=== PATIENT | male | born 1975 | race Caucasian/White ===

== ENCOUNTER 2020-12-28 14:22 | Inpatient (IN) | payer BC ==
[~2020-12-28] VITALS: Ht 180.3 cm; Wt 97.7 kg
[2020-12-28 17:08] LABS: BASOPHILS % (AUTO) 0.4 % (0-1); EOSINOPHILS % (AUTO) 0 % (0-6); HEMATOCRIT 37.7 % (42.0-52.0); LYMPHOCYTES % (AUTO) 15.2 % (21-51); MEAN CORPUSCULAR HEMOGLOBIN 27.7 PG (27.0-31.0); MEAN CORPUSCULAR HGB CONC 34.4 g/dL (33.0-36.5); MEAN CORPUSCULAR VOLUME 80.6 FL (78-98); MEAN PLATELET VOLUME 7.4 FL (7.4-10.4); MONOCYTES # (AUTO) 0.3 X10'3 (0-0.9); MONOCYTES % (AUTO) 4.8 % (2-12); NEUTROPHILS % (AUTO) 79.6 % (42-75); PLATELET COUNT 216 X10'3 (140-440); RED BLOOD COUNT 4.68 X10'6 (4.70-6.10); RED CELL DISTRIBUTION WIDTH 13.9 % (11.5-14.5); WHITE BLOOD COUNT 6.3 X10'3 (4.5-11.0)
[2020-12-28 17:18] LABS: D-DIMER 0.55 MG/L FEU (0-0.50)
[2020-12-28 17:23] LABS: ALANINE AMINOTRANSFERASE 42 U/L (12-78); ALBUMIN 3.2 G/DL (3.4-5.0); ALBUMIN/GLOBULIN RATIO 0.7 (1.1-1.5); ALKALINE PHOSPHATASE 46 IU/L (46-116); ANION GAP 11 (8-16); ASPARTATE AMINO TRANSFERASE 55 U/L (10-37); BILIRUBIN,TOTAL 0.4 MG/DL (0.1-1.0); BLOOD UREA NITROGEN 23 MG/DL (7-18); BUN/CREATININE RATIO 9.7 (5.4-32.0); C-REACTIVE PROTEIN 11.44 MG/DL (0.0-0.5); CALCIUM 8.3 MG/DL (8.5-10.1); CHLORIDE 98 MMOL/L (99-107); CREATININE 2.37 MG/DL (0.60-1.10); GLUCOSE 132 MG/DL (70-104); LACTATE DEHYDROGENASE 499 U/L (85-227); SODIUM 135 MMOL/L (135-145); TOTAL CARBON DIOXIDE 26.1 MMOL/L (24-32); TOTAL PROTEIN 7.7 G/DL (6.4-8.2); eGFR 30 ML/MIN
[2020-12-28 17:25] LABS: POTASSIUM 2.9 MMOL/L (3.5-5.1)
[2020-12-28 17:59] LABS: CLARITY,URINE CLOUDY (Clear); COLOR,URINE YELLOW (Yellow); GLUCOSE, URINE NEGATIVE (Neg); KETONES,URINE NEGATIVE (Neg); LEUKOCYTE ESTERASE ,URINE NEGATIVE (Neg); NITRITES, URINE NEGATIVE (Neg); OCCULT BLOOD,URINE LARGE (Neg); PROTEIN,URINE 300 mg/dl (Neg); UA COLLECTION TYPE CLN CATCH MIDSTREAM; UROBILINOGEN,URINE 0.2 E.U/dL (0.2-1.0)
[2020-12-28 18:06] LABS: BACTERIA,URINE 2+ /HPF (Neg); COARSE GRANULAR CAST >30 /LPF (NEGATIVE); SQUAMOUS EPITHELIAL CELL,UR MODERATE /LPF (FEW)
[2020-12-28 18:07] LABS: MUCUS STRANDS FEW /LPF (Neg); TRANSITIONAL EPI CELLS,URINE FEW /HPF; WBC,URINE 0-4 /HPF (0-4)
[2020-12-28] MEDS ORDERED: potassium Cl 20 mEq SR tablet PO ONE (18:10)
[2020-12-28] MEDS ORDERED: potassium Cl 10 mEq/100mL bag IV ONE (18:10)
[2020-12-28] MEDS ORDERED: dexamethasone 4mg tablet PO ONE (18:15)
[2020-12-28] MEDS ORDERED: acetaminophen 325mg tablet PO ONE (18:40)
[2020-12-28] MEDS ORDERED: REMDESIVIR INJ 200 MG in normal saline 100ml IV soln 60 ML IV ONE (20:00)
[2020-12-28] MEDS ORDERED: temazepam 15mg capsule PO PRN (21:00)
[2020-12-28] MEDS ORDERED: glucagon, human recombinant 1mg kit SUBCUT PRN (21:10)
[2020-12-28] MEDS ORDERED: magnesium hydroxide 30ml (MOM) UD suspension PO PRN (21:10)
[2020-12-28] MEDS ORDERED: morphine 2 MG/ML inj. syringe IV PRN (21:10)
[2020-12-28] MEDS ORDERED: potassium Cl 20 mEq SR tablet PO PRN (21:10)
[2020-12-28] MEDS ORDERED: magnesium Cl slow-release 64mg tablet PO PRN (21:10)
[2020-12-28] MEDS ORDERED: potassium Cl 40MEQ/1/2NS 520ml 520 ML IV PRN ×2 (21:10)
[2020-12-28] MEDS ORDERED: magnesium 2GM in 50ml NS 50 ML IV PRN (21:10)
[2020-12-28] MEDS ORDERED: acetaminophen 325mg tablet PO PRN ×2 (21:10)
[2020-12-28] MEDS ORDERED: ondansetron/PF 4mg/2ml inj IV PRN (21:10)
[2020-12-28] MEDS ORDERED: MESSAGE TO PHARMACY PO ONE (21:10)
[2020-12-28] MEDS ORDERED: mag hydrox/Alum hydrox/simeth 30ml oral suspension PO PRN (21:10)
[2020-12-28] MEDS ORDERED: HYDROcodone/acetaminophen 5mg/325mg tablet PO PRN (21:10)
[2020-12-28] MEDS ORDERED: dextrose ORAL solution 15 GM/59 ML bottle PO PRN ×2 (21:10)
[2020-12-28] MEDS ORDERED: magnesium 4gm in 100ml NS 100 ML IV PRN (21:10)
[2020-12-28] MEDS ORDERED: dextrose 50%-water 50ml dispensing syringe IV PRN ×2 (21:10)
[2020-12-28 21:33] LABS: HEMOGLOBIN A1C 6.7 % (4.5-6.2)
[2020-12-28] MEDS ORDERED: AMLO2.5T2 PO (21:55)
[2020-12-28] MEDS ORDERED: ALBU8.5H17 INH (21:55)
[2020-12-28] MEDS ORDERED: DULA0.75 SQ (21:55)
[2020-12-28] MEDS ORDERED: SILD100T PO (21:55)
[2020-12-28] MEDS ORDERED: LISI40TA13 PO (21:55)
[2020-12-28] MEDS ORDERED: HYDR25TA4 PO (21:55)
[2020-12-28] MEDS ORDERED: SIMV5TAB58 PO (21:55)
[2020-12-28] MEDS ORDERED: METF-438 PO (21:55)
[2020-12-28] MEDS ORDERED: NAPR-56 PO (21:55)
[2020-12-28] MEDS ORDERED: CYCL-394 PO (21:55)
[2020-12-28] MEDS ORDERED: TRAZ-251 PO (21:55)
[2020-12-28] MEDS: normal saline 1000ml 1,000 ML IV SCH (22:05)
[2020-12-28 22:32] LABS: MAGNESIUM 2.1 MG/DL (1.5-2.4); POTASSIUM 3.2 MMOL/L (3.5-5.1)
[2020-12-29] MEDS: dexamethasone 4mg/ml inj IV SCH ×2 (01:27→08:09)
--- NOTE | 2020-12-29 03:07 | NUR ---
NOTICED PT BREATHES THROUGH HIS MOUTH WHEN HE SLEEPS. PLACED NC NEAR MOUTH AND WILL CONTINUE TO MONITOR.
[2020-12-29] MEDS ORDERED: heparin, porcine 5000 units/ml vial SQ SCH (08:00)
[2020-12-29] MEDS: CefTRIAXone 2gm/D5W 50ml BAG 50 ML IV SCH (08:09)
[2020-12-29] MEDS: K and/or MAG REPLACEMENT MC SCH ×2 (08:38→20:00)
[2020-12-29] MEDS: potassium Cl 20 mEq SR tablet PO PRN ×3 (08:39→16:37)
[2020-12-29 09:11] LABS: BASOPHILS % (AUTO) 0.2 % (0-1); EOSINOPHILS % (AUTO) 0 % (0-6); HEMATOCRIT 37.7 % (42.0-52.0); LYMPHOCYTES # (AUTO) 0.9 X10'3 (1.1-4.8); LYMPHOCYTES % (AUTO) 11.8 % (21-51); MEAN CORPUSCULAR HEMOGLOBIN 27.8 PG (27.0-31.0); MEAN CORPUSCULAR HGB CONC 34.6 g/dL (33.0-36.5); MEAN CORPUSCULAR VOLUME 80.4 FL (78-98); MEAN PLATELET VOLUME 7.7 FL (7.4-10.4); MONOCYTES # (AUTO) 0.3 X10'3 (0-0.9); NEUTROPHILS # (AUTO) 6.5 X10'3 (1.8-7.7); PLATELET COUNT 230 X10'3 (140-440); RED BLOOD COUNT 4.69 X10'6 (4.70-6.10); WHITE BLOOD COUNT 7.8 X10'3 (4.5-11.0)
[2020-12-29 09:25] LABS: ALANINE AMINOTRANSFERASE 44 U/L (12-78); ALBUMIN 2.8 G/DL (3.4-5.0); ALBUMIN/GLOBULIN RATIO 0.6 (1.1-1.5); ALKALINE PHOSPHATASE 41 IU/L (46-116); ASPARTATE AMINO TRANSFERASE 51 U/L (10-37); BILIRUBIN,TOTAL 0.3 MG/DL (0.1-1.0); BLOOD UREA NITROGEN 37 MG/DL (7-18); CALCIUM 8.1 MG/DL (8.5-10.1); CHLORIDE 100 MMOL/L (99-107); CREATININE 2.46 MG/DL (0.60-1.10); GLUCOSE 213 MG/DL (70-104); MAGNESIUM 2.4 MG/DL (1.5-2.4); POTASSIUM 3.4 MMOL/L (3.5-5.1); TOTAL CARBON DIOXIDE 23.8 MMOL/L (24-32); TOTAL PROTEIN 7.3 G/DL (6.4-8.2); eGFR 29 ML/MIN
[2020-12-29 09:27] LABS: ANION GAP 14 (8-16); SODIUM 138 MMOL/L (135-145)
[2020-12-29] MEDS: normal saline 1000ml 1,000 ML IV SCH (10:47)
[2020-12-29] MEDS: dexamethasone 6 MG/D5W 100ml IV.soln (total 101.5ml) IV SCH ×2 (16:37)
--- NOTE | 2020-12-29 19:40 | NUR ---
PT SITTING UP EATING DINNER. HE HAS NO COMPLAINTS AT PRESENT.
[2020-12-29] MEDS: REMDESIVIR INJ 100 MG in normal saline 100ml IV soln 80 ML IV SCH (21:19)
[2020-12-29] MEDS: insulin glargine (Lantus) pen - multi-dose SQ SCH (22:27)
[2020-12-29] MEDS: enoxaparin 60mg/0.6ml syringe SUBCUT SCH (22:29)
--- NOTE | 2020-12-29 22:33 | NUR ---
PUMP MALFUNCTIONED. REMDESIVIR DID NOT ADMINISTER. PLACED A NEW PUMP. MEDICATION STARTING NOW.
--- NOTE | 2020-12-29 23:00 | NUR ---
MEDICATED PT FOR A HEADACHE
[2020-12-30] MEDS: dexamethasone 6 MG/D5W 100ml IV.soln (total 101.5ml) IV SCH ×6 (00:17→22:01)
[2020-12-30] MEDS: normal saline 1000ml 1,000 ML IV SCH ×2 (00:19→14:15)
[2020-12-30 07:52] LABS: BASOPHILS % (AUTO) 0.2 % (0-1); EOSINOPHILS % (AUTO) 0 % (0-6); HEMATOCRIT 39.5 % (42.0-52.0); HEMOGLOBIN 13.5 g/dl (14.0-17.9); LYMPHOCYTES # (AUTO) 1.1 X10'3 (1.1-4.8); MEAN CORPUSCULAR HEMOGLOBIN 27.6 PG (27.0-31.0); MEAN CORPUSCULAR HGB CONC 34.2 g/dL (33.0-36.5); MEAN CORPUSCULAR VOLUME 80.8 FL (78-98); MEAN PLATELET VOLUME 7.8 FL (7.4-10.4); MONOCYTES # (AUTO) 0.7 X10'3 (0-0.9); MONOCYTES % (AUTO) 5.3 % (2-12); NEUTROPHILS # (AUTO) 10.9 X10'3 (1.8-7.7); NEUTROPHILS % (AUTO) 85.5 % (42-75); PLATELET COUNT 264 X10'3 (140-440); RED BLOOD COUNT 4.88 X10'6 (4.70-6.10); RED CELL DISTRIBUTION WIDTH 14.3 % (11.5-14.5); WHITE BLOOD COUNT 12.8 X10'3 (4.5-11.0)
[2020-12-30] MEDS: K and/or MAG REPLACEMENT MC SCH ×2 (08:00→19:46)
[2020-12-30] MEDS ORDERED: ALBUTEROL INHALER 1 PUFF/90 MCG INHALER IH PRN (08:00)
[2020-12-30] MEDS ORDERED: non-formulary drug (Sildenafil Citrate* (Viagra*) 1 TAB) PO PRN (08:00)
[2020-12-30 08:04] LABS: ALANINE AMINOTRANSFERASE 42 U/L (12-78); ALBUMIN 2.7 G/DL (3.4-5.0); ALBUMIN/GLOBULIN RATIO 0.6 (1.1-1.5); ALKALINE PHOSPHATASE 46 IU/L (46-116); ANION GAP 11 (8-16); ASPARTATE AMINO TRANSFERASE 47 U/L (10-37); BILIRUBIN,TOTAL 0.3 MG/DL (0.1-1.0); BLOOD UREA NITROGEN 37 MG/DL (7-18); BUN/CREATININE RATIO 23.1 (5.4-32.0); CALCIUM 8.1 MG/DL (8.5-10.1); CHLORIDE 106 MMOL/L (99-107); GLUCOSE 207 MG/DL (70-104); MAGNESIUM 2.2 MG/DL (1.5-2.4); POTASSIUM 3.9 MMOL/L (3.5-5.1); SODIUM 143 MMOL/L (135-145); TOTAL CARBON DIOXIDE 26.5 MMOL/L (24-32); eGFR 47 ML/MIN
--- NOTE | 2020-12-30 10:23 | NUR ---
assumed care of pt from Dylan NARAYANAN
[2020-12-30] MEDS: insulin Lispro (HumaLOG) vial - multi-dose SQ SCH ×3 (11:12→20:11)
--- NOTE | 2020-12-30 13:00 | NUR ---
PT IS RESTING QUIETLY IN ROOM 12 PLAYING ON PHONE, PT IS [employer] 15 ALERT AND ORIENTED, RESP EVEN AND UNLABORED, SKIN P/W/D, HAS BEEN USING URINAL, TOLERATING DIET WELL, NO N/V, ON NASAL CANNULA 6 LITERS, TALKING FULL SENTENCES, SAID HE IS FEELING BETTER, NO BEDS AVAILABLE UPSTAIRS, PT TO REMAIN IN ER AT THIS TIME
[2020-12-30] MEDS: cyclobenzaprine 10mg tablet PO SCH ×2 (13:04→16:00)
[2020-12-30] MEDS: naproxen 500mg tablet PO SCH ×2 (13:04→20:00)
[2020-12-30] MEDS: amLODIPine 2.5mg tablet PO SCH (13:04)
[2020-12-30] MEDS: enoxaparin 60mg/0.6ml syringe SUBCUT SCH ×2 (13:05→22:02)
[2020-12-30] MEDS: CefTRIAXone 2gm/D5W 50ml BAG 50 ML IV SCH (13:05)
--- NOTE | 2020-12-30 14:00 | NUR ---
BROUGHT HOSPITAL BED FOR PT, LUNCH IS AT BEDSIDE, PLACED 02 ON HUMDIFIED NASAL CANNULA
[2020-12-30] MEDS: REMDESIVIR INJ 100 MG in normal saline 100ml IV soln 80 ML IV SCH (20:00)
[2020-12-30] MEDS: traZODone 50mg tablet PO SCH (22:02)
[2020-12-30] MEDS: SIMVASTATIN PO SCH (22:17)
[2020-12-30] MEDS: insulin glargine (Lantus) pen - multi-dose SQ SCH (22:36)
[2020-12-31] MEDS: normal saline 1000ml 1,000 ML IV SCH (03:03)
[2020-12-31 07:13] LABS: BASOPHILS % (AUTO) 0.3 % (0-1); EOSINOPHILS % (AUTO) 0 % (0-6); HEMATOCRIT 37.4 % (42.0-52.0); LYMPHOCYTES # (AUTO) 1.2 X10'3 (1.1-4.8); LYMPHOCYTES % (AUTO) 13.3 % (21-51); MEAN CORPUSCULAR HGB CONC 34.8 g/dL (33.0-36.5); MEAN CORPUSCULAR VOLUME 80.4 FL (78-98); MONOCYTES # (AUTO) 0.6 X10'3 (0-0.9); MONOCYTES % (AUTO) 6.7 % (2-12); NEUTROPHILS # (AUTO) 7.3 X10'3 (1.8-7.7); NEUTROPHILS % (AUTO) 79.7 % (42-75); PLATELET COUNT 289 X10'3 (140-440); RED BLOOD COUNT 4.66 X10'6 (4.70-6.10); RED CELL DISTRIBUTION WIDTH 14.5 % (11.5-14.5); WHITE BLOOD COUNT 9.2 X10'3 (4.5-11.0)
[2020-12-31 07:38] LABS: ALANINE AMINOTRANSFERASE 42 U/L (12-78); ALBUMIN 2.5 G/DL (3.4-5.0); ALBUMIN/GLOBULIN RATIO 0.6 (1.1-1.5); ALKALINE PHOSPHATASE 40 IU/L (46-116); ANION GAP 9 (8-16); ASPARTATE AMINO TRANSFERASE 36 U/L (10-37); BILIRUBIN,TOTAL 0.4 MG/DL (0.1-1.0); BLOOD UREA NITROGEN 33 MG/DL (7-18); BUN/CREATININE RATIO 23.1 (5.4-32.0); CHLORIDE 109 MMOL/L (99-107); CREATININE 1.43 MG/DL (0.60-1.10); GLUCOSE 194 MG/DL (70-104); POTASSIUM 3.7 MMOL/L (3.5-5.1); SODIUM 146 MMOL/L (135-145); TOTAL CARBON DIOXIDE 27.8 MMOL/L (24-32); TOTAL PROTEIN 6.5 G/DL (6.4-8.2); eGFR 53 ML/MIN
[2020-12-31] MEDS: K and/or MAG REPLACEMENT MC SCH ×2 (08:00→20:00)
--- NOTE | 2020-12-31 10:19 | NUR ---
Patient in room ED 12. I have received report from Lexus RN and had the opportunity to ask questions and assume patient care.
[2020-12-31] MEDS: enoxaparin 60mg/0.6ml syringe SUBCUT SCH ×2 (10:20→20:09)
[2020-12-31] MEDS: naproxen 500mg tablet PO SCH ×2 (11:17→20:07)
[2020-12-31] MEDS: cyclobenzaprine 10mg tablet PO SCH ×3 (11:17→16:29)
[2020-12-31] MEDS: amLODIPine 2.5mg tablet PO SCH (11:17)
[2020-12-31] MEDS: dexamethasone 6 MG/D5W 100ml IV.soln (total 101.5ml) IV SCH ×6 (11:21→16:29)
[2020-12-31 12:00] VITALS: BP 149/81
[2020-12-31] MEDS: CefTRIAXone 2gm/D5W 50ml BAG 50 ML IV SCH (12:28)
[2020-12-31] MEDS: insulin Lispro (HumaLOG) vial - multi-dose SQ SCH ×2 (13:57→20:06)
[2020-12-31 14:00] VITALS: BP 135/72
[2020-12-31 14:21] LABS: D-DIMER 0.37 MG/L FEU (0-0.50)
[2020-12-31 18:00] VITALS: BP 145/80
--- NOTE | 2020-12-31 18:22 | NUR ---
patient report given to Danielle NARAYANAN
--- NOTE | 2020-12-31 18:54 | NUR ---
Patient in room [facility]TH[facility] 4024. I have received report from LADY Shipley and had the opportunity to ask questions and assume patient care.
[2020-12-31] MEDS: lactobacillus rhamnosus 10,000 MMU CELLS/CAPSULE PO SCH (20:07)
[2020-12-31] MEDS: traZODone 50mg tablet PO SCH (20:59)
[2020-12-31] MEDS: REMDESIVIR INJ 100 MG in normal saline 100ml IV soln 80 ML IV SCH (21:00)
[2020-12-31] MEDS: SIMVASTATIN PO SCH (21:00)
[2020-12-31 22:00] VITALS: BP 129/72
--- NOTE | 2020-12-31 22:20 | NUR ---
Gave patient 12 units of Lantus since he had received it the night before and there was no morning blood sugar to adjust up or down from.
[2020-12-31] MEDS: insulin glargine (Lantus) pen - multi-dose SQ SCH (22:21)
[2021-01-01] MEDS: dexamethasone 6 MG/D5W 100ml IV.soln (total 101.5ml) IV SCH ×4 (00:32→07:50)
[2021-01-01] MEDS: cyclobenzaprine 10mg tablet PO SCH ×4 (00:33→23:25)
[2021-01-01 02:00] VITALS: BP 125/64
--- NOTE | 2021-01-01 02:26 | NUR ---
Spoke with Charge LADY Durant on patient's HR of 47. She said to continue to monitor at this time. As long as patient is not symptomatic. We discussed possibility of HR being low because the patient is sleeping. Patient had a low HR of 45 earlier this evening and stated that he felt fine no symptoms.
[2021-01-01 06:10] VITALS: BP 134/68
--- NOTE | 2021-01-01 06:19 | NUR ---
Problems reprioritized. Patient report given, questions answered & plan of care reviewed with LADY Shipley.
[2021-01-01 06:46] LABS: BASOPHILS % (AUTO) 0.5 % (0-1); EOSINOPHILS % (AUTO) 0 % (0-6); HEMOGLOBIN 13.1 g/dl (14.0-17.9); LYMPHOCYTES # (AUTO) 1.2 X10'3 (1.1-4.8); LYMPHOCYTES % (AUTO) 16.7 % (21-51); MEAN CORPUSCULAR HEMOGLOBIN 28.5 PG (27.0-31.0); MEAN CORPUSCULAR HGB CONC 35.4 g/dL (33.0-36.5); MEAN CORPUSCULAR VOLUME 80.4 FL (78-98); MEAN PLATELET VOLUME 7.9 FL (7.4-10.4); MONOCYTES # (AUTO) 0.6 X10'3 (0-0.9); MONOCYTES % (AUTO) 8.2 % (2-12); NEUTROPHILS # (AUTO) 5.5 X10'3 (1.8-7.7); NEUTROPHILS % (AUTO) 74.6 % (42-75); PLATELET COUNT 307 X10'3 (140-440); RED BLOOD COUNT 4.61 X10'6 (4.70-6.10); RED CELL DISTRIBUTION WIDTH 14.5 % (11.5-14.5); WHITE BLOOD COUNT 7.4 X10'3 (4.5-11.0)
[2021-01-01 07:00] LABS: D-DIMER 0.31 MG/L FEU (0-0.50)
[2021-01-01 07:36] LABS: ALANINE AMINOTRANSFERASE 117 U/L (12-78); ALBUMIN 2.7 G/DL (3.4-5.0); ALBUMIN/GLOBULIN RATIO 0.7 (1.1-1.5); ALKALINE PHOSPHATASE 43 IU/L (46-116); ANION GAP 8 (8-16); ASPARTATE AMINO TRANSFERASE 66 U/L (10-37); BILIRUBIN,TOTAL 0.6 MG/DL (0.1-1.0); BLOOD UREA NITROGEN 26 MG/DL (7-18); BUN/CREATININE RATIO 26.3 (5.4-32.0); C-REACTIVE PROTEIN 2.44 MG/DL (0.0-0.5); CALCIUM 8.1 MG/DL (8.5-10.1); CHLORIDE 106 MMOL/L (99-107); CREATININE 0.99 MG/DL (0.60-1.10); GLUCOSE 166 MG/DL (70-104); MAGNESIUM 1.5 MG/DL (1.5-2.4); POTASSIUM 3.3 MMOL/L (3.5-5.1); SODIUM 143 MMOL/L (135-145); TOTAL CARBON DIOXIDE 29.2 MMOL/L (24-32); TOTAL PROTEIN 6.7 G/DL (6.4-8.2); eGFR 82 ML/MIN
[2021-01-01] MEDS: naproxen 500mg tablet PO SCH ×2 (07:49→19:21)
[2021-01-01] MEDS: amLODIPine 2.5mg tablet PO SCH (07:49)
[2021-01-01] MEDS: lactobacillus rhamnosus 10,000 MMU CELLS/CAPSULE PO SCH ×2 (07:50→19:24)
[2021-01-01] MEDS: enoxaparin 60mg/0.6ml syringe SUBCUT SCH ×2 (07:51→19:21)
[2021-01-01] MEDS: CefTRIAXone 2gm/D5W 50ml BAG 50 ML IV SCH (08:32)
[2021-01-01] MEDS: insulin Lispro (HumaLOG) vial - multi-dose SQ SCH ×3 (08:41→19:16)
[2021-01-01 10:00] VITALS: BP 136/74
--- NOTE | 2021-01-01 10:12 | NUR ---
Initial: Pt admit DX acute respiratory failure, COVID-19, DM, and acute on chronic renal failure per EMR. Hx T2DM A1C 6.7 w/ Glu 166mg/dl on glycemic protocol and dexamethasone per EMR. No PO documentation first 3 days admit w/ PO 50-75% avg carb controlled diet yesterday partially meeting estimated needs. Currently on 6L NC per EMR. LBM 12/31 noted w/ diarrhea. Will continue to monitor for further PO trends and nutrition intervention needs this admit. Rec: 1. continue carb controlled diet per MD; encourage PO 2. monitor for ONS needs pending further PO documentation; first 3 days no PO documentation. IF PO trends persist or regress consider Ensure Enlive TIDWM to meet estimated needs 3. bowel care per rx; consider anti-diarrheal if diarrhea persists 4. scaled wt this admit; subsequent weekly wts Addendum: 01/01/21 at [address] Amended: Links added.
[2021-01-01] MEDS ORDERED: magnesium Cl slow-release 64mg tablet PO PRN (10:50)
[2021-01-01] MEDS ORDERED: potassium Cl 20 mEq SR tablet PO PRN (10:50)
[2021-01-01] MEDS ORDERED: potassium Cl 40MEQ/1/2NS 520ml 520 ML IV PRN (10:50)
[2021-01-01] MEDS ORDERED: magnesium 4gm in 100ml NS 100 ML IV PRN (10:50)
[2021-01-01] MEDS: potassium Cl 20 mEq SR tablet PO PRN ×3 (11:09→19:21)
[2021-01-01] MEDS: dexamethasone inj 6 MG in dextrose 5%-water 100 ML IV SCH ×2 (12:45→19:22)
[2021-01-01 14:00] VITALS: BP 147/75
[2021-01-01 18:00] VITALS: BP 141/69
--- NOTE | 2021-01-01 18:35 | NUR ---
PATIENT REPORT GIVEN TO BRIDGET NARAYANAN
[2021-01-01] MEDS: K and/or MAG REPLACEMENT MC SCH (19:23)
[2021-01-01] MEDS: insulin glargine (Lantus) pen - multi-dose SQ SCH (21:00)
[2021-01-01] MEDS: SIMVASTATIN PO SCH (21:00)
[2021-01-01 22:00] VITALS: BP 155/72
[2021-01-01] MEDS: REMDESIVIR INJ 100 MG in normal saline 100ml IV soln 80 ML IV SCH (22:04)
[2021-01-01] MEDS: traZODone 50mg tablet PO SCH (22:05)
[2021-01-02 02:00] VITALS: BP 135/72
[2021-01-02 06:00] VITALS: BP 118/61
--- NOTE | 2021-01-02 06:47 | NUR ---
Patient in room [facility]TH[facility] 4024. I have received report from nery ramsey and had the opportunity to ask questions and assume patient care.
[2021-01-02 07:00] LABS: BASOPHILS % (AUTO) 0.2 % (0-1); EOSINOPHILS % (AUTO) 0.1 % (0-6); HEMATOCRIT 39.1 % (42.0-52.0); HEMOGLOBIN 13.4 g/dl (14.0-17.9); LYMPHOCYTES % (AUTO) 19.8 % (21-51); MEAN CORPUSCULAR HEMOGLOBIN 27.8 PG (27.0-31.0); MEAN CORPUSCULAR HGB CONC 34.4 g/dL (33.0-36.5); MEAN CORPUSCULAR VOLUME 80.8 FL (78-98); MEAN PLATELET VOLUME 7.7 FL (7.4-10.4); MONOCYTES % (AUTO) 9.9 % (2-12); PLATELET COUNT 373 X10'3 (140-440); RED BLOOD COUNT 4.84 X10'6 (4.70-6.10); RED CELL DISTRIBUTION WIDTH 14.2 % (11.5-14.5); WHITE BLOOD COUNT 9.9 X10'3 (4.5-11.0)
[2021-01-02 07:11] LABS: D-DIMER 0.33 MG/L FEU (0-0.50)
[2021-01-02 07:38] LABS: ALANINE AMINOTRANSFERASE 117 U/L (12-78); ALBUMIN 2.7 G/DL (3.4-5.0); ALBUMIN/GLOBULIN RATIO 0.7 (1.1-1.5); ALKALINE PHOSPHATASE 42 IU/L (46-116); ANION GAP 10 (8-16); ASPARTATE AMINO TRANSFERASE 45 U/L (10-37); BILIRUBIN,TOTAL 0.6 MG/DL (0.1-1.0); BLOOD UREA NITROGEN 21 MG/DL (7-18); BUN/CREATININE RATIO 24.7 (5.4-32.0); C-REACTIVE PROTEIN 1.42 MG/DL (0.0-0.5); CHLORIDE 107 MMOL/L (99-107); CREATININE 0.85 MG/DL (0.60-1.10); GLUCOSE 129 MG/DL (70-104); MAGNESIUM 1.4 MG/DL (1.5-2.4); POTASSIUM 3.4 MMOL/L (3.5-5.1); SODIUM 147 MMOL/L (135-145); TOTAL CARBON DIOXIDE 30.3 MMOL/L (24-32); TOTAL PROTEIN 6.5 G/DL (6.4-8.2); eGFR > 90 ML/MIN
[2021-01-02 07:40] VITALS: BP 157/85
[2021-01-02] MEDS: amLODIPine 2.5mg tablet PO SCH (07:42)
[2021-01-02] MEDS: enoxaparin 60mg/0.6ml syringe SUBCUT SCH (07:42)
[2021-01-02] MEDS: lactobacillus rhamnosus 10,000 MMU CELLS/CAPSULE PO SCH (07:42)
[2021-01-02] MEDS: dexamethasone inj 6 MG in dextrose 5%-water 100 ML IV SCH (07:42)
[2021-01-02] MEDS: naproxen 500mg tablet PO SCH (07:42)
[2021-01-02] MEDS: cyclobenzaprine 10mg tablet PO SCH (08:00)
[2021-01-02] MEDS: K and/or MAG REPLACEMENT MC SCH (08:00)
--- NOTE | 2021-01-02 09:39 | NUR ---
pt refused to wear portable 02 to restroom. i had to portable tank at the bedside and he refused. educated pt on the importance of wearing 02 at this time. he stated "i will be fine...really"
[2021-01-02 10:00] VITALS: BP 125/83
[2021-01-02] MEDS: potassium Cl 20 mEq SR tablet PO PRN (10:00)
[2021-01-02] MEDS: CefTRIAXone 2gm/D5W 50ml BAG 50 ML IV SCH (10:00)
[2021-01-02] MEDS: insulin Lispro (HumaLOG) vial - multi-dose SQ SCH (10:03)
[2021-01-02] MEDS ORDERED: DEC4T PO (10:40)
--- NOTE | 2021-01-02 12:56 | NUR ---
O2 Sat at rest on room air:__80_% If below 89%: Recovery O2 Sat at rest on _4__LPM:___%:_94__% via____NC (mask/nasal cannula, etc..) No further documentation is necessary. If O2 Sat did not drop below 89% on room air,ambulate patient on room air. O2 Sat while ambulating on room air:___% Recovery O2 Sat while ambulating on ___LPM:___% No further documentation is necessary. If patient does not drop below 89% while ambulating, he/she does not qualify for home O2.
--- NOTE | 2021-01-02 15:02 | NUR ---
PT STATED THAT HE DID NOT WANT TO BE ON HOME 02. EDUCATED PT THAT HIS 02 WAS 80-82% ON RA, HE WOULD NEED TO GO HOME WITH 02 AT 4L. HE STATED THAT HE WAS AGREEABLE. EDUCATED PT ON GETTING FINGER PULSE OX TO MONITOR AT HOME. PT ALSO EDUCATED ON SELF ISOLATING AT HOME. PT EDUCATED ON RETURNING BACK TO THE ER OR CALL 911 IF STARTED FEELING SOB OR HAVING WORSE SYMPTOMS. PT STATES THAT HE IS GOING TO DRIVE HIMSELF HOME TODAY, I ASKED IF HE HAD FAMILY THAT COULD PICK HIM UP. HE STATED THAT HE DID BUT HE WAS GOING TO DRIVE HIMSELF HIS CAR WAS IN THE PARKING LOT.
--- NOTE | 2021-01-02 15:20 | NUR ---
PT DISCHARGED IN STABLE CONDITION. LEFT FACILITY IN PRIVATE VEHICLE. 2 PORTABLE 02 TANKS IN HAND. PT EDUCATED ON THE IMPORTANCE OF WEARING HIS OXYGEN AT HOME AND WHILE DRIVING. IV DC CANULA INTACT. FOLLOW UP INSTRUCTIONS GIVEN, INCLUDING RETURNING TO ER IF SYMPTOMS WORSEN. PT STATES THAT HE UNDERSTANDS THAT HE NEEDS TO WEAR HIS 02 EVEN THOUGH HE WAS HESITANT TO RETURN HOME WITH O2. PT AWARE HE IS TO CALL [employer] WHEN HE GETS HOME. Addendum: 01/02/21 at 1600 by Nyla Reynolds RN Amended: Links added.
== END 2021-01-02 13:20 | disposition home or self-care (01) | DRG 177 ==
LOC: ER 14:24 → ED HOLD 21:13 → ORTHO 4S 12-31 12:00
PROVIDERS: ADMIT Internal Medicine; ATTEND Family Medicine
PROC: XW033E5 Introduction of Remdesivir Anti-infective into Peripheral Vein, Percutaneous Approach, New Technology Group 5 (ICD-10-PCS; principal; 2020-12-28)
PROC: CB121ZZ Planar Nuclear Medicine Imaging of Lungs and Bronchi using Technetium 99m (Tc-99m) (ICD-10-PCS; 2020-12-29)
PROC: 5A0935A Assistance with Respiratory Ventilation, Less than 24 Consecutive Hours, High Flow/Velocity Cannula (ICD-10-PCS; 2021-01-02)
DX: U07.1 COVID-19 (principal); J12.82 Pneumonia due to coronavirus disease 2019; J16.0 Chlamydial pneumonia; J96.01 Acute respiratory failure with hypoxia; N17.0 Acute kidney failure with tubular necrosis; E11.22 Type 2 diabetes mellitus with diabetic chronic kidney disease; N18.30 Chronic kidney disease, stage 3 unspecified; E87.6 Hypokalemia
CPT/HCPCS: 36415; 71045; 78580; 80053; 81001; 82948; 83036; 83605; 83615; 83735; 84132; 84145; 85025; 85379; 86140; 87040; 87081; 87502; 87503; 87635; 94760; 96361; 96365; 96366; 97161; 97530; 99285; A9540; C9803; G0378; J0696; J1100; J1644; J1650; J1815; J3480; J7030; J7060